=== PATIENT | female | born 1985 | race Hispanic/Latino ===

== ENCOUNTER → 2017-05-24 | Outpatient (CLI) | payer BC ==
--- NOTE | 2017-05-24 11:06 | REP ---
Clinical: Pain with recent trauma. Technique: AP, lateral, bilateral oblique and sunrise views of the left knee. Findings: Subtle age-related degenerative changes include cortical irregularity and spurring at the tibiofemoral joint along with subtle spurring along the superior- posterior margin of the patella. No acute fracture dislocation. No effusion. Impression: Mild age-related degenerative changes. No acute fracture or dislocation. Signed by Mario Crockett MD 05/24/2017 10:57 A
== END ==
LOC: M ADAMS 10:32
PROVIDERS: ATTEND Physician Assistant
DX: M25.562 Pain in left knee (principal)

== ENCOUNTER → 2017-06-28 | Outpatient (REF) | payer BC ==
[2017-06-28 14:04] LABS: ALBUMIN/GLOBULIN RATIO 1.05 (1.00-1.93); ALKALINE PHOSPHATASE 76 U/L (45-117); ALT/SGPT 28 U/L (12-78); ANION GAP 6 MEQ/L (8-16); AST/SGOT 14 U/L (15-37); BILIRUBIN,TOTAL 0.3 MG/DL (0.2-1.0); BLOOD UREA NITROGEN 14 MG/DL (7-18); CALCIUM LEVEL 9.4 MG/DL (8.5-10.1); CARBON DIOXIDE LEVEL 29 MEQ/L (21-32); CHLORIDE LEVEL 104 MEQ/L (98-107); CHOLESTEROL LEVEL 215 MG/DL (<200); CREATININE FOR GFR 0.73 MG/DL (0.55-1.02); GLOMERULAR FILTRATION RATE > 60.0 (>60); GLUCOSE, FASTING 82 MG/DL (70-105); POTASSIUM SERUM 4.3 MEQ/L (3.5-5.1); SODIUM LEVEL 139 MEQ/L (136-145); TOTAL PROTEIN 7.8 GM/DL (6.4-8.2); TRIGLYCERIDES LEVEL 242 MG/DL (<150)
== END ==
LOC: M LABDRWAD 12:29
PROVIDERS: ATTEND Emergency Medicine
DX: E55.9 Vitamin D deficiency, unspecified (principal); I10 Essential (primary) hypertension; E78.2 Mixed hyperlipidemia

== ENCOUNTER → 2018-05-23 | Outpatient (REF) | payer BC ==
[2018-05-23 12:45] LABS: ALKALINE PHOSPHATASE 69 U/L (45-117); ALT/SGPT 29 U/L (12-78); ANION GAP 9 MEQ/L (8-16); AST/SGOT 18 U/L (7-37); BLOOD UREA NITROGEN 16 MG/DL (7-18); CARBON DIOXIDE LEVEL 28 MEQ/L (21-32); CHLORIDE LEVEL 105 MEQ/L (98-107); CREATININE FOR GFR 0.67 MG/DL (0.55-1.30); GLOMERULAR FILTRATION RATE > 60.0 (>60); GLUCOSE, FASTING 86 MG/DL (70-100); POTASSIUM SERUM 4.2 MEQ/L (3.5-5.1); SODIUM LEVEL 142 MEQ/L (136-145)
[2018-05-23 12:46] LABS: ALBUMIN 3.9 GM/DL (3.2-5.2); ALBUMIN/GLOBULIN RATIO 1.08 (1.00-1.93); BILIRUBIN,TOTAL 0.3 MG/DL (0.2-1.0); CHOLESTEROL LEVEL 176 MG/DL (<200); CHOLESTEROL RISK RATIO 5.176 (<5); HDL CHOLESTEROL 34 MG/DL (>40); LDL CHOLESTEROL 111.6 MG/DL (<100); NON-HDL-C 142 MG/DL; TOTAL PROTEIN 7.5 GM/DL (6.4-8.2); TRIGLYCERIDES LEVEL 152 MG/DL (<150)
== END ==
LOC: M LABDRWAD 12:15
DX: I10 Essential (primary) hypertension (principal); E78.2 Mixed hyperlipidemia; E55.9 Vitamin D deficiency, unspecified
CPT/HCPCS: 80053

== ENCOUNTER → 2018-08-10 | Outpatient (REF) | payer BC ==
[2018-08-10 17:24] LABS: HEMATOCRIT 39.2 % (36.0-47.0); HEMOGLOBIN 13.1 g/dl (12.0-15.5); MEAN CORPUSCULAR HEMOGLOBIN 27.2 pg (27.0-33.0); MEAN CORPUSCULAR HGB CONC 33.4 g/dl (32.0-36.5); MEAN CORPUSCULAR VOLUME 81.5 fl (80.0-96.0); PLATELET COUNT, AUTOMATED 247 10^3/uL (150-450); RED BLOOD COUNT 4.81 10^6/uL (4.00-5.40); RED CELL DISTRIBUTION WIDTH 12.9 % (11.5-14.5); WHITE BLOOD COUNT 11.8 10^3/uL (4.0-10.0)
[2018-08-10 17:57] LABS: HCG, SERUM QUANTITATIVE 30384 MIU/ML
[2018-08-12 11:47] LABS: RUBELLA IgG QUALITATIVE IMMUNE (IMMUNE)
[2018-08-12 11:51] LABS: HBsAg Prenatal NEGATIVE (NEGATIVE)
[2018-08-12 12:16] LABS: HEPATITIS C VIRUS ABY INDEX 0.1 INDEX (<0.8)
[2018-08-12 12:17] LABS: HIV 1&2 SCREEN CENTAUR NEGATIVE (NEGATIVE)
== END ==
LOC: M LAB REF 16:42
DX: O36.80X0 Pregnancy with inconclusive fetal viability, not applicable or unspecified (principal)

== ENCOUNTER → 2018-09-05 | Outpatient (REF) | payer BC ==
[2018-09-05 15:07] LABS: CHLAMYDIA DNA AMPLIFICATION NEGATIVE (NEGATIVE); GC DNA AMPLIFICATION NEGATIVE (NEGATIVE)
== END ==
LOC: M LAB REF 13:23
DX: Z34.81 Encounter for supervision of other normal pregnancy, first trimester (principal)
CPT/HCPCS: 87591

== ENCOUNTER → 2018-09-16 | Outpatient (CLI) | payer BC ==
[2018-09-16 11:49] LABS: URINE TOTAL PROTEIN 10.2 MG/DL (0-12)
[2018-09-16 13:13] LABS: ALT/SGPT 18 U/L (12-78); AST/SGOT 13 U/L (7-37); BILIRUBIN,TOTAL 0.2 MG/DL (0.2-1.0); CREATININE FOR GFR 0.52 MG/DL (0.55-1.30); GLOMERULAR FILTRATION RATE > 60.0 (>60); LDH LACTATE DEHYDROGENASE 171 U/L (84-246); URIC ACID 3.2 MG/DL (2.6-6.0)
[2018-09-16 23:12] LABS: TOTAL PROTEIN 24 HOUR URINE 86.7 MG/24HR (50-150); TOTAL VOLUME, URINE 850 ML
== END ==
LOC: M LAB 10:08
DX: O09.891 Supervision of other high risk pregnancies, first trimester (principal); I10 Essential (primary) hypertension; Z3A.00 Weeks of gestation of pregnancy not specified
CPT/HCPCS: 84460

== ENCOUNTER → 2019-01-05 | Outpatient (CLI) | payer BC ==
[2019-01-05 13:00] LABS: HEMATOCRIT 32.9 % (36.0-47.0); HEMOGLOBIN 10.7 g/dl (12.0-15.5); MEAN CORPUSCULAR HEMOGLOBIN 27.1 pg (27.0-33.0); MEAN CORPUSCULAR HGB CONC 32.5 g/dl (32.0-36.5); MEAN CORPUSCULAR VOLUME 83.3 fl (80.0-96.0); PLATELET COUNT, AUTOMATED 140 10^3/uL (150-450); RED BLOOD COUNT 3.95 10^6/uL (4.00-5.40); WHITE BLOOD COUNT 12.7 10^3/uL (4.0-10.0)
== END ==
LOC: M LABDRWAD 09:39
PROVIDERS: ATTEND Obstetrics & Gynecology
DX: O09.892 Supervision of other high risk pregnancies, second trimester (principal)

== ENCOUNTER 2019-02-28 12:16 | Inpatient (IN) | payer BC ==
[2019-02-28] VITALS (18 sets, daily range): BP systolic 106–161; BP diastolic 53–99
[~2019-02-28] VITALS: Ht 160 cm; Wt 107.9 kg
[2019-02-28] MEDS ORDERED: LR 1,000 ML IV SCH (12:30)
[2019-02-28] MEDS ORDERED: LABETALOL 200 MG TAB PO ONE (13:00)
[2019-02-28] MEDS ORDERED: LABE100T36 PO (13:02)
[2019-02-28] MEDS ORDERED: PRENTAB9 PO (13:03)
[2019-02-28 13:16] LABS: BASO % 0.3 % (0.0-1.0); EOS # 0.1 10^3/uL (0.0-0.50); EOS % 0.8 % (0.0-3.0); HEMATOCRIT 32.8 % (36.0-47.0); HEMOGLOBIN 10.6 g/dl (12.0-15.5); LYMPH # 2.2 10^3/uL (1.5-4.5); LYMPH % 15.2 % (24.0-44.0); MEAN CORPUSCULAR HEMOGLOBIN 25.5 pg (27.0-33.0); MEAN CORPUSCULAR HGB CONC 32.3 g/dl (32.0-36.5); MONO # 1.1 10^3/uL (0.0-0.8); MONO % 7.6 % (0.0-5.0); NEUTROPHILS # 10.6 10^3/uL (1.8-7.7); NEUTROPHILS % 74.9 % (36.0-66.0); PLATELET COUNT, AUTOMATED 132 10^3/uL (150-450); RED BLOOD COUNT 4.15 10^6/uL (4.00-5.40); WHITE BLOOD COUNT 14.2 10^3/uL (4.0-10.0)
[2019-02-28 13:31] LABS: ALT/SGPT 19 U/L (12-78); BILIRUBIN,TOTAL 0.2 MG/DL (0.2-1.0); CREATININE FOR GFR 0.51 MG/DL (0.55-1.30); GLOMERULAR FILTRATION RATE > 60.0 (>60); LDH LACTATE DEHYDROGENASE 178 U/L (84-246); URIC ACID 4.2 MG/DL (2.6-6.0)
[2019-02-28 13:47] LABS: CREATININE,RANDOM URINE 75.5 MG/DL
[2019-02-28 13:55] LABS: TOTAL PROTEIN,RANDOM URINE 6.5 MG/DL (0.0-12.0)
[2019-02-28 17:20] LABS: HEMATOCRIT 30.7 % (36.0-47.0); HEMOGLOBIN 10.1 g/dl (12.0-15.5); MEAN CORPUSCULAR HEMOGLOBIN 25.8 pg (27.0-33.0); MEAN CORPUSCULAR HGB CONC 32.9 g/dl (32.0-36.5); MEAN CORPUSCULAR VOLUME 78.5 fl (80.0-96.0); PLATELET COUNT, AUTOMATED 125 10^3/uL (150-450); RED BLOOD COUNT 3.91 10^6/uL (4.00-5.40); WHITE BLOOD COUNT 14.7 10^3/uL (4.0-10.0)
[2019-02-28 17:44] LABS: ALT/SGPT 17 U/L (12-78); BILIRUBIN,TOTAL 0.2 MG/DL (0.2-1.0); CREATININE FOR GFR 0.47 MG/DL (0.55-1.30); GLOMERULAR FILTRATION RATE > 60.0 (>60); LDH LACTATE DEHYDROGENASE 176 U/L (84-246); URIC ACID 4.3 MG/DL (2.6-6.0)
[2019-02-28] MEDS ORDERED: ACETAMINOPHEN 500 MG TAB PO ONE (19:30)
--- NOTE | 2019-02-28 19:35 | HPE ---
DATE OF ADMISSION: 02/28/2019 Karla is a 34-year-old female, 7, para 1-0-5-1 with an estimated date of confinement (EDC) of 03/26/2019, estimated gestational age (EGA) 36-2/7 weeks gestation, who presented to the office with a complaint of severe headache on and off for the last day. Upon evaluation in the office, she was found to have an elevated blood pressure of 165/96. The patient is a chronic hypertensive, currently on labetalol. She did take her labetalol this morning around 8:00 a.m. Her repeated blood pressure remains elevated at 172/98. At this point, the decision was made to send the patient to labor and delivery for further monitoring and evaluation. Upon evaluation in labor and delivery, she continued to have a headache, her blood pressure on admission to labor and delivery was 158/97 with a pulse rate of 80 and respirations of 18. At this point, the decision was made to admit the patient for further observation and serial labs. She does have a history of prior section and was scheduled for repeat section. Her record reviewed, was essentially unremarkable other than the chronic hypertension and polycystic ovarian syndrome. She has had a section in 2012 and laparoscopy in 2016 for an ectopic . LABS: Blood type is A+, rubella immune, hepatitis negative, HIV negative, GC chlamydia negative, 1-hour sugar testing was within normal limits. Her GBS is negative. PAST MEDICAL HISTORY: Significant for chronic hypertension and polycystic ovarian syndrome. PAST SURGICAL HISTORY: section times one, laparoscopy times one. SOCIAL HISTORY: She is . Denies any alcohol or drug use. REVIEW OF SYSTEMS: Unremarkable. FAMILY HISTORY: Significant for hypertension and hypothyroidism. PHYSICAL EXAMINATION: Obese female in no acute distress. HEENT: Grossly within normal limits. Abdomen: Soft, nontender, nondistended. Extremities: No clubbing, cyanosis, +1 lower extremity edema. Deep tendon reflexes (DTRs) 2/4 bilaterally. Category 1 tracing noted. No contractions. Initial labs done in labor and delivery shows a white count of 14.2, hemoglobin and hematocrit of 10.6 over 38.2 with a platelet count of 132, uric acid was 4.2, GFR greater than 60, AST 16, ALT 19, creatinine 0.51, spot urine creatinine ratio was 0.08. ASSESSMENT: 1. Intrauterine at 36-2/7 weeks gestation. 2. Chronic hypertension, cannot rule out severe preeclampsia. PLAN: The patient will be admitted to labor and delivery for continuous monitoring and observation. Serial labs will be drawn. Tylenol will be given for headache. If there are signs of improvement, she will continue to be monitored. However, if she is showing signs of severe preeclampsia, worsening preeclampsia, we will proceed with delivery via section. The risks and benefits of delivery at this point discussed with the patient in detail. She is 36-2/7 weeks gestation, possibility of lung maturity also discussed. However, given her symptoms, if this is severe preeclampsia, the benefit will outweigh the risk.
[2019-02-28] MEDS: LABETALOL 200 MG TAB PO SCH (21:00)
[2019-03-01] VITALS (21 sets, daily range): BP systolic 120–151; BP diastolic 59–77
[2019-03-01] MEDS ORDERED: ACETAMINOPHEN TAB 650MG DOSE (2X325MG) PO ONE (02:15)
[2019-03-01 06:43] LABS: HEMATOCRIT 29.8 % (36.0-47.0); HEMOGLOBIN 9.5 g/dl (12.0-15.5); MEAN CORPUSCULAR HEMOGLOBIN 25.4 pg (27.0-33.0); MEAN CORPUSCULAR HGB CONC 31.9 g/dl (32.0-36.5); MEAN CORPUSCULAR VOLUME 79.7 fl (80.0-96.0); PLATELET COUNT, AUTOMATED 105 10^3/uL (150-450); RED BLOOD COUNT 3.74 10^6/uL (4.00-5.40)
[2019-03-01 07:12] LABS: ALT/SGPT 17 U/L (12-78); BILIRUBIN,TOTAL 0.3 MG/DL (0.2-1.0); CREATININE FOR GFR 0.43 MG/DL (0.55-1.30); GLOMERULAR FILTRATION RATE > 60.0 (>60); LDH LACTATE DEHYDROGENASE 147 U/L (84-246); URIC ACID 4.2 MG/DL (2.6-6.0)
[2019-03-01] MEDS ORDERED: OXYTOCIN INJ 10 UNITS/ML VIAL (J2590) As Ordered ONE (08:32)
[2019-03-01] MEDS ORDERED: fentaNYL 100 MCG/2 ML INJECTION (J3010) As Ordered ONE (08:33)
[2019-03-01] MEDS ORDERED: MORPHINE PRES-FREE INJ 10 MG/10 ML VIAL (J2274) As Ordered ONE (08:33)
[2019-03-01] MEDS ORDERED: dexameTHASONE 4 MG/ML 1ML VIAL (J1100) As Ordered ONE (08:34)
[2019-03-01] MEDS ORDERED: LR 1,000 ML IV SCH (08:34)
[2019-03-01] MEDS ORDERED: KETOROLAC 60 MG/2 ML VIAL (J1885) As Ordered ONE (08:34)
[2019-03-01] MEDS ORDERED: ONDANSETRON 4MG/2ML VIAL (J2405) As Ordered ONE (08:34)
[2019-03-01] MEDS: LABETALOL 200 MG TAB PO SCH ×2 (08:44→21:28)
[2019-03-01] MEDS ORDERED: BICITRA 30ML SOLN UDC PO ONE (08:45)
[2019-03-01] MEDS ORDERED: BUPIVACAINE/DEXTROSE 0.75% 2 ML AMP As Ordered ONE (08:48)
[2019-03-01] MEDS ORDERED: LABETALOL 200 MG TAB PO SCH (09:00)
[2019-03-01] MEDS: DOCUSATE SODIUM 100 MG CAP PO SCH ×2 (09:00→21:29)
[2019-03-01] MEDS: PRENATAL VITAMINS CHEWABLE TABLET PO SCH (09:00)
[2019-03-01] MEDS ORDERED: METOCLOPRAMIDE INJ 10MG/2ML VIAL (J2765) IV PRN (09:10)
[2019-03-01] MEDS ORDERED: NALBUPHINE HCL 10 MG/ML AMP (J2300) IV PRN ×2 (09:10→11:00)
[2019-03-01] MEDS ORDERED: diphenhydrAMINE INJ 50MG/ML VIAL (J1200) IV PRN (09:10)
[2019-03-01] MEDS ORDERED: ONDANSETRON 4MG/2ML VIAL (J2405) IV PRN ×2 (09:10→11:00)
[2019-03-01] MEDS ORDERED: NALOXONE INJ 0.4 MG/1 ML VIAL (J2310) IV PRN ×2 (09:10)
[2019-03-01] MEDS ORDERED: PHENYLephrine HCL 500 MCG/5 ML (100MCG/ML) SYRINGE (J2370) As Ordered ONE (09:34)
[2019-03-01] MEDS ORDERED: ePHEDrine SULFATE 25 MG/5 ML(5MG/ML) SYRINGE As Ordered ONE (09:34)
[2019-03-01] MEDS ORDERED: diphenhydrAMINE INJ 50MG/ML VIAL (J1200) As Ordered ONE (09:40)
[2019-03-01 09:55] LABS: CORD GAS ABE V -1.9; CORD GAS HCO3 V 23.4 MEQ/L; CORD GAS O2 SAT V 75.8 %; CORD GAS PH V 7.364 UNITS; CORD GAS PO2 V 33.2 mmHg; CORD GAS SBC V 22.3 MEQ/L; CORD GAS TCO2 V 24.7 MEQ/L
[2019-03-01] MEDS ORDERED: OXYTOCIN 30 UNITS IN 0.9% NaCl 500ML IV BAG (J2590) As Ordered ONE (09:57)
[2019-03-01 09:58] LABS: CORD GAS ABE A -1.7; CORD GAS HCO3 A 25.5 MEQ/L; CORD GAS PCO2 A 52.4 mmHg; CORD GAS PH A 7.305 UNITS; CORD GAS PO2 A 20.1 mmHg; CORD GAS SBC A 21.7 MEQ/L; CORD GAS TCO2 A 27.1 MEQ/L
[2019-03-01] MEDS ORDERED: MOM 30ML SUSPENSION UDC PO PRN (10:15)
[2019-03-01] MEDS ORDERED: MEASLES,MUMPS,RUBELLA VACCINE INJ (MMR-II) (90707) SC SCH (10:15)
[2019-03-01] MEDS ORDERED: RHOGAM 300 MCG (1500 IU) INJ (J2790) IM SCH (10:15)
--- NOTE | 2019-03-01 10:20 | RO ---
DATE OF PROCEDURE: 03/01/2019 Karla is a 34-year-old female who was admitted at 36-3/7 weeks gestation with chronic hypertension with superimposed pre-eclampsia. She had severe headache with low platelet count. At this point given her severe pre-eclampsia, the decision was made to proceed with her previously scheduled section. The patient had a section with her last . Her fetus was found to be in breech position. After extensive counseling and decision was made to proceed with the section. PREOPERATIVE DIAGNOSES: 1. Severe pre-eclampsia with superimposed chronic hypertension. 2. Intrauterine at 36-3/7 weeks gestation with a history of prior section. 3. Breech presentation. POSTOPERATIVE DIAGNOSES: 1. Severe pre-eclampsia with superimposed chronic hypertension. 2. Intrauterine at 36-3/7 weeks gestation with a history of prior section. 3. Breech presentation. 4. Double footling breech. PROCEDURE: 1. Repeat section. 2. Breech extraction. 3. Revision of old scar. ANESTHESIA: Spinal. SURGEON: Dr. Shalom Watson. POWERSAW SUPERVISOR: Dr. Pepe Uribe. COMPLICATIONS: None. ESTIMATED BLOOD LOSS: 600 mL. FINDINGS: Male with double footling breech position. Apgars 9 and 9, birthweight 7 pounds 3 ounces. Placenta removed manually. Bilateral ovaries and tubes within normal limits. DESCRIPTION OF PROCEDURE: After obtaining informed consent the patient was taken to the operating room where spinal anesthetic was found to be adequate. She was then draped and prepped usual sterile fashion in the supine position> With the help of Dr. Blanco, an elliptical incision was made over her old scar. The old scar was removed. We then carried the incision all way down to the fascia. Fascia was incised in midline fashion and carried through laterally. Superior aspect of the fascia was then grasped with two Jerome clamps, tented off and dissected off the rectus muscles sharply. The inferior aspect was dissected off in a similar fashion. Dr. Uribe helped with the placement of the Mobius skin retractor and the delivery of the . was delivered via breech extraction double footling breech in an atraumatic fashion. The nose and mouth was bulb suctioned. Cord doubly clamped and cut and infant was handed over to the waiting warmer. Cord blood and cord gas were sent. Placenta removed manually. Uterus cleared of all clot and debris and uterine incision was then repaired in two separate layers of 0 Vicryl sutures. Pelvis copiously irrigated with normal saline and suctioned out. Attention turned to the peritoneum, which was closed in a running fashion using #2-0 Vicryl. Fascia closed in two separate segment of 0 Vicryl sutures. Superficial bleeders coagulated and the skin was reapproximated in subcuticular fashion using #3-0 Vicryl on a Onur. Steri-Strips placed. The patient tolerated procedure well. She was then transferred to recovery room in stable condition.
[2019-03-01] MEDS: OXYTOCIN DRIP 30 UNITS in APPROPRIATE DILUENT 1 EA IV SCH ×2 (10:31→12:34)
[2019-03-01] MEDS ORDERED: fentaNYL 100 MCG/2 ML INJECTION (J3010) IV PRN (11:00)
[2019-03-01] MEDS: IBUPROFEN 800 MG TAB PO SCH (19:32)
[2019-03-01] MEDS: PERCOCET 5MG/325MG TAB PO PRN (21:29)
[2019-03-02] VITALS (7 sets, daily range): BP systolic 107–138; BP diastolic 54–81
[2019-03-02] MEDS: IBUPROFEN 800 MG TAB PO SCH ×3 (01:50→18:07)
[2019-03-02 06:36] LABS: HEMATOCRIT 28.8 % (36.0-47.0); HEMOGLOBIN 9.1 g/dl (12.0-15.5); MEAN CORPUSCULAR HEMOGLOBIN 25.2 pg (27.0-33.0); MEAN CORPUSCULAR HGB CONC 31.6 g/dl (32.0-36.5); MEAN CORPUSCULAR VOLUME 79.8 fl (80.0-96.0); PLATELET COUNT, AUTOMATED 128 10^3/uL (150-450); RED BLOOD COUNT 3.61 10^6/uL (4.00-5.40); WHITE BLOOD COUNT 13.7 10^3/uL (4.0-10.0)
[2019-03-02 06:57] LABS: ALT/SGPT 15 U/L (12-78); BILIRUBIN,TOTAL 0.3 MG/DL (0.2-1.0); CREATININE FOR GFR 0.57 MG/DL (0.55-1.30); GLOMERULAR FILTRATION RATE > 60.0 (>60); LDH LACTATE DEHYDROGENASE 176 U/L (84-246); URIC ACID 4.4 MG/DL (2.6-6.0)
[2019-03-02] MEDS: LABETALOL 200 MG TAB PO SCH ×2 (08:59→21:55)
[2019-03-02] MEDS: PRENATAL VITAMINS CHEWABLE TABLET PO SCH (08:59)
[2019-03-02] MEDS: DOCUSATE SODIUM 100 MG CAP PO SCH ×2 (08:59→22:18)
[2019-03-02] MEDS: PERCOCET 5MG/325MG TAB PO PRN ×3 (11:50→22:18)
[2019-03-02] MEDS ORDERED: ADACEL/BOOSTRIX VACCINE (DIPHTH/PERTUSS/ACELL/TETANUS)0.5ML SYR (90715) IM ONE (12:00)
[2019-03-03] MEDS: IBUPROFEN 800 MG TAB PO SCH ×2 (01:52→10:18)
[2019-03-03] MEDS: PERCOCET 5MG/325MG TAB PO PRN ×3 (01:52→10:32)
[2019-03-03] MEDS ORDERED: IBUP80TA PO (04:10)
[2019-03-03] MEDS ORDERED: PERC5TAB12 PO (04:10)
[2019-03-03 06:00] VITALS: BP 147/69
[2019-03-03 10:13] VITALS: BP 146/78
[2019-03-03] MEDS: PRENATAL VITAMINS CHEWABLE TABLET PO SCH (10:17)
[2019-03-03 10:19] VITALS: BP 146/78
[2019-03-03] MEDS: DOCUSATE SODIUM 100 MG CAP PO SCH (10:19)
[2019-03-03] MEDS: LABETALOL 200 MG TAB PO SCH (10:19)
== END 2019-03-03 11:26 | disposition home or self-care (01) | DRG 540 ==
LOC: M LDI 12:16 → M OBS 03-01 12:40
PROVIDERS: ADMIT Obstetrics & Gynecology; ATTEND Obstetrics & Gynecology
PROC: 10D00Z1 Extraction of Products of Conception, Low, Open Approach (ICD-10-PCS; principal; 2019-03-01 09:00)
DX: O32.8XX0 Maternal care for other malpresentation of fetus, not applicable or unspecified (principal); O10.02 Pre-existing essential hypertension complicating childbirth; E28.2 Polycystic ovarian syndrome; O11.4 Pre-existing hypertension with pre-eclampsia, complicating childbirth; Z37.0 Single live birth; Z3A.36 36 weeks gestation of pregnancy; O99.284 Endocrine, nutritional and metabolic diseases complicating childbirth; O34.211 Maternal care for low transverse scar from previous cesarean delivery

== ENCOUNTER 2020-05-05 22:31 | Emergency (ER) | payer BC ==
[~2020-05-05] VITALS: Ht 162.6 cm; Wt 100.0 kg
[~2020-05-05 22:31] MED LIST: IBUP80TA PO; LABE100T36 PO; PERC5TAB12 PO; PRENTAB9 PO
[2020-05-05] MEDS ORDERED: METF-838 (22:38)
[2020-05-05 23:43] VITALS: BP 149/79
--- NOTE | 2020-05-06 06:46 | REP ---
Clinical: Trauma. Fall. Technique: AP, lateral, bilateral oblique views of the left ankle. Findings: Mild generalized soft tissue swelling. Corticated bony fragment along the lateral aspect of the talus just below the fibular head may represent congenital ossicle or old fracture fragment. No obvious acute fracture to the ankle noted. There is a nondisplaced fracture through the base of the fifth metatarsal bone identified on lateral radiograph. Impression: 1. Soft tissue swelling. 2. Nondisplaced fracture at the base of the fifth metatarsal bone. 3. Further findings as above. Electronically Signed by Mario Crockett MD 05/06/2020 06:36 A
--- NOTE | 2020-05-06 06:47 | REP ---
Clinical: Trauma. Fall. Technique: AP, lateral, bilateral oblique views of the left foot. Findings: There is a nondisplaced fracture at the base of the fifth metatarsal bone. Associated overlying soft tissue swelling noted. Small bony fragment identified just lateral to the talus may represent congenital ossicle or old fracture fragment. Impression: 1. Acute nondisplaced fracture at the base of the fifth metatarsal bone with overlying soft tissue swelling. 2. Possible old injury along the lateral aspect of the talus should be correlated clinically. Electronically Signed by Mario Crockett MD 05/06/2020 06:38 A
== END 2020-05-05 23:44 | disposition home or self-care (01) ==
LOC: M ED 22:31
DX: S92.355A Nondisplaced fracture of fifth metatarsal bone, left foot, initial encounter for closed fracture (principal); X50.1XXA Overexertion from prolonged static or awkward postures, initial encounter; Y92.099 Unspecified place in other non-institutional residence as the place of occurrence of the external cause; Y93.9 Activity, unspecified; Y99.9 Unspecified external cause status; I10 Essential (primary) hypertension; E28.2 Polycystic ovarian syndrome; Z79.899 Other long term (current) drug therapy

== ENCOUNTER → 2020-12-09 | Outpatient (REF) | payer BC ==
[~2020-12-09] MED LIST changes: +METF-838
[2020-12-09 18:07] LABS: BASO # 0.1 10^3/uL (0.0-0.2); BASO % 0.4 % (0.0-1.0); EOS # 0.3 10^3/uL (0.0-0.5); EOS % 2.5 % (0.0-3.0); HEMATOCRIT 38.7 % (36.0-47.0); HEMOGLOBIN 12.3 g/dl (12.0-15.5); LYMPH # 3.2 10^3/uL (1.5-5.0); LYMPH % 24.2 % (24.0-44.0); MEAN CORPUSCULAR HEMOGLOBIN 25.2 pg (27.0-33.0); MEAN CORPUSCULAR HGB CONC 31.8 g/dl (32.0-36.5); MEAN CORPUSCULAR VOLUME 79.1 fl (80.0-96.0); MONO # 1.4 10^3/uL (0.0-0.8); MONO % 10.7 % (0.0-5.0); NEUTROPHILS # 8.2 10^3/uL (1.5-8.5); NEUTROPHILS % 61.3 % (36.0-66.0); PLATELET COUNT, AUTOMATED 281 10^3/uL (150-450); RED BLOOD COUNT 4.89 10^6/uL (4.00-5.40); WHITE BLOOD COUNT 13.4 10^3/uL (4.0-10.0)
[2020-12-09 18:35] LABS: ERYTHROCYTE SEDIMENTATION RATE 25 mm/hr (0-20)
[2020-12-09 19:09] LABS: ALBUMIN 3.8 GM/DL (3.2-5.2); ALT/SGPT 29 U/L (12-78); BILIRUBIN,TOTAL 0.2 MG/DL (0.2-1.0); BLOOD UREA NITROGEN 12 MG/DL (7-18); C REACTIVE PROTEIN QUANTITATIV 0.54 MG/DL (0.00-0.30); CALCIUM LEVEL 9.2 MG/DL (8.5-10.1); CARBON DIOXIDE LEVEL 25 MEQ/L (21-32); CHLORIDE LEVEL 104 MEQ/L (98-107); CREATININE FOR GFR 0.66 MG/DL (0.55-1.30); GLOMERULAR FILTRATION RATE > 60.0 (>60); GLUCOSE, FASTING 76 MG/DL (70-100); POTASSIUM SERUM 4.4 MEQ/L (3.5-5.1); RHEUMATOID FACTOR QUANT < 10.0 IU/ML (<15.0); SODIUM LEVEL 137 MEQ/L (136-145); TOTAL PROTEIN 7.4 GM/DL (6.4-8.2)
[2020-12-11 12:17] LABS: ANTINUCLEAR ANTIBODIES DIRECT Negative (Negative)
== END ==
LOC: M LABDRWAD 16:46
PROVIDERS: ATTEND Nurse Practitioner Family
DX: R21 Rash and other nonspecific skin eruption (principal)

== ENCOUNTER 2021-10-03 07:35 | Outpatient (CLI) | payer BC ==
[~2021-10-03] VITALS: Ht 160 cm; Wt 102.0 kg
[~2021-10-03 07:35] MED LIST changes: +ALBUTEROL 90 MCG/ACT 8GM HFA INHALER INH PRN; +ALBUTEROL SULFATE 2.5 MG/0.5 ML INH NEB SOLN INH PRN; +EPINEPHrine INJ 1 MG/ML 1ML AMP IM PRN; -LABE100T36 PO; +LABE100T5 PO; +NS 1,000 ML IV SCH; +diphenhydrAMINE 50MG/ML VIAL (J1200) IV PRN; +methylPREDNISolone 125MG 2ML VIAL IV PRN
[2021-10-03] MEDS ORDERED: CASIRIVIMAB (REGN10933) 600 MG, IMDEVIMAB (REGN10987) 600 MG in NS 250 ML IV ONE (08:05)
[2021-10-03 08:44] VITALS: BP 131/66
[2021-10-03 09:14] VITALS: BP 147/78
[2021-10-03 09:44] VITALS: BP 139/76
[2021-10-03 10:44] VITALS: BP 130/71
== END 2021-10-03 10:44 | disposition home or self-care (01) ==
LOC: M OPCLI4PR 07:35
PROVIDERS: ATTEND Nurse Practitioner Family
DX: U07.1 COVID-19 (principal)

== ENCOUNTER 2023-01-13 20:07 | Emergency (ER) | payer BC ==
[~2023-01-13] VITALS: Ht 160 cm; Wt 100.0 kg
[~2023-01-13 20:07] MED LIST changes: -ALBUTEROL 90 MCG/ACT 8GM HFA INHALER INH PRN; -ALBUTEROL SULFATE 2.5 MG/0.5 ML INH NEB SOLN INH PRN; -EPINEPHrine INJ 1 MG/ML 1ML AMP IM PRN; -LABE100T5 PO; +LABE100T71 PO; -NS 1,000 ML IV SCH; -diphenhydrAMINE 50MG/ML VIAL (J1200) IV PRN; -methylPREDNISolone 125MG 2ML VIAL IV PRN
[2023-01-13] MEDS ORDERED: LISI20TA33 PO (20:43)
[2023-01-13 21:37] LABS: BASO # 0.1 10^3/uL (0.0-0.2); BASO % 0.3 % (0.0-1.0); EOS # 0.1 10^3/uL (0.0-0.5); EOS % 0.3 % (0.0-3.0); HEMATOCRIT 41.2 % (36.0-47.0); HEMOGLOBIN 13.2 g/dl (12.0-15.5); LYMPH # 2.3 10^3/uL (1.5-5.0); LYMPH % 11.1 % (24.0-44.0); MEAN CORPUSCULAR VOLUME 78.2 fl (80.0-96.0); MONO # 0.7 10^3/uL (0.0-0.8); MONO % 3.4 % (2.0-8.0); NEUTROPHILS # 17.5 10^3/uL (1.5-8.5); NEUTROPHILS % 84.3 % (36.0-66.0); PLATELET COUNT, AUTOMATED 315 10^3/uL (150-450); RED BLOOD COUNT 5.27 10^6/uL (4.00-5.40); WHITE BLOOD COUNT 20.7 10^3/uL (4.0-10.0)
[2023-01-13 21:48] LABS: INR 0.91; PROTHROMBIN TIME 12.5 SECONDS (12.5-14.5)
[2023-01-13 22:05] LABS: CK-MB VALUE MASS < 1.0 NG/ML (<3.6); LIPASE 29 U/L (12-53)
[2023-01-13 22:07] LABS: ALBUMIN 3.7 G/DL (3.2-5.2); ALKALINE PHOSPHATASE 69 U/L (46-116); ALT/SGPT 13 U/L (7.0-40); AMYLASE 45 U/L (30-118); AST/SGOT 16 U/L (<34); BILIRUBIN,DIRECT 0.1 MG/DL (<0.4); BILIRUBIN,TOTAL 0.4 MG/DL (0.3-1.2); BLOOD UREA NITROGEN 16 MG/DL (9-23); CALCIUM LEVEL 9.4 MG/DL (8.5-10.1); CARBON DIOXIDE LEVEL 27 MMOL/L (20-31); CHLORIDE LEVEL 104 MMOL/L (98-107); CPK CREATINE PHOSPHOKINASE 50 U/L (34-145); CREATININE FOR GFR 0.74 MG/DL (0.55-1.30); GLOMERULAR FILTRATION RATE > 60.0 (>60); GLUCOSE, FASTING 116 MG/DL (60-100); POTASSIUM SERUM 4.3 MMOL/L (3.5-5.1); SODIUM LEVEL 138 MMOL/L (136-145); TOTAL PROTEIN 7.6 G/DL (5.7-8.2)
[2023-01-14 00:26] LABS: CK-MB VALUE MASS < 1.0 NG/ML (<3.6)
[2023-01-14 00:27] LABS: CPK CREATINE PHOSPHOKINASE 49 U/L (34-145); MB/CK RELATIVE INDEX 2.04 (< OR =4)
[2023-01-14] MEDS ORDERED: ONDANSETRON 4MG 2ML VIAL IV ONE (00:30)
[2023-01-14 00:31] LABS: HCG, SERUM QUALITATIVE NEGATIVE (NEGATIVE)
[2023-01-14] MEDS ORDERED: KETOROLAC 30 MG/ML 1ML VIAL IV ONE (00:35)
[2023-01-14] MEDS ORDERED: ISOVUE-370 76% 100ML VIAL As Ordered ONE (00:45)
[2023-01-14] MEDS ORDERED: CEFU50TA PO (04:33)
[2023-01-14] MEDS ORDERED: CEFUROXIME 500 MG TAB PO ONE (04:35)
[2023-01-14 05:00] VITALS: BP 143/73
[2023-01-14] MEDS ORDERED: METR-265 PO (05:02)
== END 2023-01-14 05:20 | disposition home or self-care (01) ==
LOC: M ED 20:07
DX: K29.70 Gastritis, unspecified, without bleeding (principal); K52.9 Noninfective gastroenteritis and colitis, unspecified; N39.0 Urinary tract infection, site not specified; I10 Essential (primary) hypertension; E28.2 Polycystic ovarian syndrome; F12.10 Cannabis abuse, uncomplicated
CPT/HCPCS: 36415; 74177; 76857; 80048; 80076; 81001; 82150; 82550; 82553; 83605; 83690; 84484; 84703; 85025; 85610; 93005; 96374; 96375; 99285; J1885; J2405

== ENCOUNTER → 2025-07-16 | Outpatient (CLI) | payer BC ==
[~2025-07-16] MED LIST changes: +CEFU50TA PO; +LABE100T40 PO; -LABE100T71 PO; +LISI20TA33 PO; +METR-265 PO
[2025-07-16 13:31] LABS: C REACTIVE PROTEIN QUANTITATIV < 0.50 MG/DL (<1.0)
[2025-07-16 13:33] LABS: FREE T4 1.19 NG/DL (0.89-1.76)
[2025-07-16 13:34] LABS: IRON (FE) 39 UG/DL (50-170); MONO SCRN NEGATIVE (NEGATIVE); PERCENT SATURATION 11.8 % (13.2-45.0); TOTAL 25(OH) VITAMIN D 30.9 NG/ML (20.0-100.0)
[2025-07-16 13:35] LABS: RHEUMATOID FACTOR QUANT 3.8 IU/ML (<14)
[2025-07-16 13:40] LABS: BASO # 0.1 10^3/uL (0.0-0.2); BASO % 0.6 % (0.0-1.0); EOS # 0.2 10^3/uL (0.0-0.5); EOS % 2.7 % (0.0-3.0); LYMPH # 2.5 10^3/uL (1.5-5.0); LYMPH % 31.4 % (24.0-44.0); MONO # 0.6 10^3/uL (0.0-0.8); MONO % 7.6 % (2.0-8.0); NEUTROPHILS # 4.5 10^3/uL (1.5-8.5); NEUTROPHILS % 57.4 % (36.0-66.0); PLATELET COUNT, AUTOMATED 235 10^3/uL (150-450)
[2025-07-16 13:47] LABS: ERYTHROCYTE SEDIMENTATION RATE 29 mm/hr (0-20)
[2025-07-16 14:07] LABS: ALT/SGPT 20 U/L (7.0-40); AST/SGOT 20 U/L (<34); CALCIUM LEVEL 9.3 MG/DL (8.5-10.1); CARBON DIOXIDE LEVEL 25 MMOL/L (20-31); CHLORIDE LEVEL 109 MMOL/L (98-107); CREATININE FOR GFR 0.69 MG/DL (0.55-1.30); GLOMERULAR FILTRATION RATE > 90.0 (>60); MAGNESIUM LEVEL 1.9 MG/DL (1.8-2.4); POTASSIUM SERUM 4.8 MMOL/L (3.5-5.1); SODIUM LEVEL 141 MMOL/L (136-145)
[2025-07-18 17:39] LABS: SSA SJOGRENS A <1.0 NEG AI (<1.0 NEG); SSB SJOGRENS B <1.0 NEG AI (<1.0 NEG)
[2025-07-19 14:42] LABS: LYME TOTAL ANTIBODY CIA <= 0.90 Index (<=0.90)
[2025-07-20 13:10] LABS: BORRELIA SPECIES DNA NOT DETECTED (NOT DETECT)
[2025-07-20 13:57] LABS: HLA-B27 Positive (Negative)
== END ==
LOC: M LABDRWAD 10:08
PROVIDERS: ATTEND Nurse Practitioner Family
DX: M12.9 Arthropathy, unspecified (principal); R53.83 Other fatigue